=== PATIENT | female | born 1955 | race Caucasian/White ===

== ENCOUNTER 2018-11-13 20:46 | Emergency (ER) | payer MEDICAID ==
[2018-11-14] MEDS: IBUPROFEN 200 MG TAB PO (01:14)
[2018-11-14] MEDS: HYDROCODONE/APAP (5/325) TAB PO (01:14)
== END 2018-11-14 04:11 | disposition home or self-care (01) ==
LOC: FTE 20:46
DX: S39.92XA Unspecified injury of lower back, initial encounter (principal); W18.30XA Fall on same level, unspecified, initial encounter; Y92.002 Bathroom of unspecified non-institutional (private) residence as the place of occurrence of the external cause; Z79.84 Long term (current) use of oral hypoglycemic drugs; Z79.82 Long term (current) use of aspirin
CPT/HCPCS: 72128; 99284-25

== ENCOUNTER 2019-05-06 18:23 | Emergency (ER) | payer MEDICAID ==
[2019-05-06] MEDS: traMADol 50 MG TAB PO (19:01)
== END 2019-05-06 19:51 | disposition home or self-care (01) ==
LOC: FTE 18:23
DX: S43.401A Unspecified sprain of right shoulder joint, initial encounter (principal); E11.9 Type 2 diabetes mellitus without complications; W18.39XA Other fall on same level, initial encounter; Y92.9 Unspecified place or not applicable; Z79.84 Long term (current) use of oral hypoglycemic drugs; Z79.82 Long term (current) use of aspirin
CPT/HCPCS: 73030; 73030-RT; 99283-25